=== PATIENT | male | born 1995 | race Caucasian/White ===

== ENCOUNTER 2016-12-24 13:44 | Outpatient (CLI) | payer OTHER ==
[~2016-12-24 13:44] MED LIST: EPINEPHrine 1 MG/ML AMP ONE; Gadobenate Dimeglumine 529 MG/1 ML (20ML VIAL) ONE; Iopamidol 300 61% 30 ML VIAL ONE; Lidocaine 1% PF 5 ML VIAL ONE
--- NOTE | 2016-12-24 19:14 | RAD ---
ARTHROGRAM RIGHT ELBOW: History: 21-year-old male, status post right elbow injury. Arthrogram performed to introduce gadolinium based contrast into the joint for subsequent MR arthrogram. Technique: Signed informed consent obtained. Uphol[employer] Tech radiographic views of the elbow obtained. Patient placed pro ne on fluoroscopy table. Lateral approach. Overlying skin of the elbow was prepped and draped in the usual sterile fashion while the patient's elbow was in 90 degree partially flexed position. 25 gaug e needle was used to apply buffered Lidocaine superficial and deeply. The same 25 gauge needle was u sed to enter the capitello-radial articulation joint space under brief, intermittent fluoroscopy. A total of 5 ml of normal saline solution containing iodinated contrast, MultiHance gadolinium based c ontrast agent, a small amount of Lidocaine, and a tiny amount of epinephrine, was injected into the joint space. Needle was removed. Patient tolerated the procedure well. No complications. FINDINGS: Upholstery Tech views demonstrate no abnormality. Images obtained during and after intraarticular injection d emonstrate good contrast distribution within the joint spaces. IMPRESSION: 1. Successful right elbow arthrogram. 2. Please see separate report of MR arthrogram of right elbow. POS: [facility]
--- NOTE | 2016-12-25 08:50 | MRI ---
MR ARTHROGRAM OF RIGHT ELBOW: Date: 12/24/16 INDICATION: Right elbow pain. COMPARISON: Right elbow radiograph dated 12/24/16. FINDINGS: The anterior band of the ulnar collateral ligament appears intact. The radial collateral and lateral ulnar collateral ligament appear intact. No osteochondral lesion is identified. The common extensor and common flexor origins appear intact. A small amount of increased T2 signal is seen within the c ommon extensor tendon origin on image 9 of series 9 from the medial epicondyle of the distal humerus . Biceps, triceps, and brachialis insertions are normal appearing. Visualized ulnar nerve appears wi thin normal limits. IMPRESSION: 1. Mild medial humeral epicondylitis. 2. The anterior band of the ulnar collateral ligament appears intact. The lateral collateral and la teral ulnar collateral ligament appear intact. No osteochondral lesion is identified. POS: [facility]
== END 2016-12-24 13:45 | disposition home or self-care (01) ==
LOC: RAD 13:44
PROVIDERS: ATTEND Orthopaedic Surgery
DX: M25.521 Pain in right elbow (principal); M77.01 Medial epicondylitis, right elbow
CPT/HCPCS: 24220; A9579; J0171; J2001; J7050